=== PATIENT | female | born 1955 | race Caucasian/White ===

== ENCOUNTER 2020-05-25 17:59 | Outpatient (REF) | payer OTHER, SELFPAY ==
--- NOTE | 2020-05-25 | MR_ITS ---
EXAMINATION: MR LUMBAR SPINE WITHOUT CONTRAST CLINICAL INFORMATION: Low back pain. Bilateral lower to mid pain, numbness, and weakness. COMPARISON: Lumbar spine radiographs 08/04/2006. TECHNIQUE: MRI of the lumbar spine was obtained using routine sequences without contrast. FINDINGS: Alignment is normal. Vertebral heights are preserved. No acute bone marrow signal changes. There is disc desiccation at L4-L5 without substantial loss of intervertebral disc height. The tip of the conus medullaris is located at the level of L1-L2. No mass effect on the conus. Visualized distal cord signal intensity is normal. At L1-L2 the annular contour is normal. No canal or neuroforaminal compromise. At L2-L3 the annular contour is normal. No canal or neuroforaminal compromise. At L3-L4 there is a slightly bulging disc. No canal stenosis. Partial effacement. Neural fat with mild mass effect on the left L3 foraminal nerve root. At L4-L5 there is a shallow central protrusion superimposed upon an asymmetrically bulging disc to the left. Advanced bilateral facet degenerative change. No canal stenosis. Moderate compression of both L4 foraminal nerve roots. At L5-S1 there is a slightly bulging disc. Bilateral facet degenerative change. No canal stenosis. Moderate compression of the right L5 foraminal nerve root and mild compression of left L5 foraminal nerve root. Limited visualization of the retroperitoneal anatomy reveals no abnormal finding. Psoas and paraspinal muscle groups are symmetric. MR/MR lumbar spine wo con IMPRESSION: There is disc degeneration at multiple levels within the lumbar spine and facet arthrosis at L4-L5 and L5-S1. No canal stenosis. A bulging disc in conjunction with facet degenerative change at L4-L5 causes moderate compression of both L4 foraminal nerve roots. There is also moderate compression of the right L5 foraminal nerve root related to degenerative changes at L5-S1.
== END 2020-05-25 18:00 | disposition home or self-care (01) ==
LOC: HO.MRI 17:59
PROVIDERS: Visit Provider Psychiatry & Neurology Neurology
DX: M54.5 Low back pain (principal)
CPT/HCPCS: 72148